=== PATIENT | female | born 1965 | race Caucasian/White ===

== ENCOUNTER 2018-10-14 08:17 | Emergency (ER) | payer MEDICAID ==
[~2018-10-14] VITALS: Ht 167.6 cm; Wt 75.3 kg
[2018-10-14 08:25] VITALS: BP 146/59
--- NOTE | 2018-10-14 08:25 | NUR ---
BIB SELF. C/O OF DIZZINESS X TODAY. PT IS NAUSEATED, VOMITING AND DIARRHEA X 1 EARLIER TODAY AAOX4. PATIENT POSITIONED FOR COMFORT; HOB ELEVATED; BEDRAILS UP X1; BED DOWN. ER MD MADE AWARE OF PT STATUS. PMH: HYPERTENSION, HEART MURMUR
[2018-10-14] MEDS ORDERED: ONDANSETRON 4 MG/2 ML VIAL IVP ONE (08:45)
--- NOTE | 2018-10-14 08:45 | NUR ---
Patient being evaluated by physician at bedside.
--- NOTE | 2018-10-14 10:00 | NUR ---
Patient appears to be resting comfortably in bed. Respirations even and unlabored.
[2018-10-14 12:44] VITALS: BP 143/60
== END 2018-10-14 12:44 | disposition home or self-care (01) ==
LOC: MED 08:17
DX: R42 Dizziness and giddiness (principal); I10 Essential (primary) hypertension; G40.909 Epilepsy, unspecified, not intractable, without status epilepticus; Z88.0 Allergy status to penicillin; Z88.1 Allergy status to other antibiotic agents; Z88.2 Allergy status to sulfonamides; Z88.8 Allergy status to other drugs, medicaments and biological substances; Z79.899 Other long term (current) drug therapy
CPT/HCPCS: 81002; 81025; 96374; 99283; J2405

== ENCOUNTER 2018-10-25 10:54 | Emergency (ER) | payer MEDICAID ==
--- NOTE | 2018-10-25 11:30 | NUR ---
WHEN CALLED PT FOR TRIAGE, COULD NOT FIND THE PT, PT LEFT WITHOUT SEEN PER CABLE DRILLER.
== END 2018-10-25 11:30 | disposition left against medical advice (07) ==
LOC: MED 10:54
DX: Z53.21 Procedure and treatment not carried out due to patient leaving prior to being seen by health care provider (principal)

== ENCOUNTER 2018-10-27 06:26 | Emergency (ER) | payer MEDICAID ==
[~2018-10-27] VITALS: Ht 167.6 cm; Wt 72.1 kg
[2018-10-27 06:32] VITALS: BP 145/69
--- NOTE | 2018-10-27 06:50 | NUR ---
PT BIB SELF C/O CONGESTION. PT STATES PRODUCTIVE COUGH OF THIN CLEAR MUCOUS AND SOB X3 WEEKS. PT STATES 0/10 PAIN AT THIS TIME. DENIES N/V/D. --AUDIBLE WHEEZING THROUGH OUT. BREATHING EQUAL AND UNLABORED. PT O2 SAT 95% ROOM AIR. SKIN WARM, DRY AND INTACT. SPEECH CLEAR. PT ACTING APPROPRIATLY. PT IN GOWN, IN BED; BED IN LOWER LOCKED POSITION; BEDRAILS UP X1. ER MD AWARE. WILL CONTINUE TO MONITOR. PMH: HTN, EPILEPSY, VERTIGO
--- NOTE | 2018-10-27 07:07 | NUR ---
Pt report given to BANDAR Conteh. Transfer of care at this time.
[2018-10-27] MEDS ORDERED: CEPHALEXIN 500 MG CAP PO ONE (07:35)
[2018-10-27] MEDS ORDERED: FAMOTIDINE 20 MG TAB PO ONE (07:35)
[2018-10-27] MEDS ORDERED: DEXAMETHASONE 10 MG/ML VIAL IM ONE (07:35)
[2018-10-27] MEDS ORDERED: hydrOXYzine HCL 25 MG TAB PO ONE (07:35)
[2018-10-27] MEDS ORDERED: MECLIZINE 25 MG TAB PO ONE (07:35)
[2018-10-27] MEDS ORDERED: ALBUTEROL SULFATE/IPRATROPIU 3 ML SOL IH ONE (07:35)
--- NOTE | 2018-10-27 07:42 | NUR ---
INFLUENZA A & B SWAB OBTAINED ORDERED.
[2018-10-27 08:19] LABS: BASOPHILS % (AUTO) 0.5 % (0.0-2.0); EOSINOPHILS # (AUTO) 0.1 K/uL (0-0.4); EOSINOPHILS % (AUTO) 0.7 % (0.0-4.0); HEMATOCRIT 44.6 % (36-48); HEMOGLOBIN 15.2 g/dL (12.0-16.0); LYMPHOCYTES # (AUTO) 1.9 K/uL (2.5-16.5); LYMPHOCYTES % (AUTO) 21.8 % (20.5-51.1); MEAN CORPUSCULAR HEMOGLOBIN 31 pg (27-31); MEAN CORPUSCULAR HGB CONC 34 g/dL (33-37); MEAN CORPUSCULAR VOLUME 89.7 fL (80-94); MONOCYTES # (AUTO) 0.5 K/uL (0.8-1.0); NEUTROPHILS # (AUTO) 6.2 K/uL (1.8-7.7); PLATELET COUNT (AUTO) 195 K/uL (140-450); RED BLOOD CELL COUNT(AUTO) 4.97 MIL/uL (4.20-5.40); RED CELL DISTRIBUTION WIDTH 12.5 % (11.6-13.7); WHITE BLOOD COUNT (AUTO) 8.8 K/uL (4.8-10.8)
--- NOTE | 2018-10-27 08:20 | NUR ---
PT TAKEN TO RADIOLOGY VIA WHEEL CHAIR BY PRATIBHA FREEMAN
[2018-10-27 08:37] LABS: BARBITURATE, URINE NEG. ng/ml (NEG <=200); BENZODIAZEPINE, URINE NEG. ng/mL (NEG <=200); CANNABINOID, URINE POS. ng/mL (NEG <=50); COCAINE, URINE NEG. ng/mL (NEG <=300); OPIATE, URINE POS. ng/mL (NEG <=2000); PHENCYCLIDINE SCREEN,URINE NEG. ng/mL (NEG <=25)
[2018-10-27 08:38] LABS: ALBUMIN 3.8 g/dL (3.4-5.0); ANION GAP 16.4 (8-16); CARBON DIOXIDE 24.7 mmol/L (21-32); CREATININE 0.7 mg/dL (0.6-1.3); POTASSIUM 4.1 mmol/L (3.5-5.1); TOTAL BILIRUBIN 0.3 mg/dL (0.0-1.0)
[2018-10-27 08:55] LABS: PROTHROMBIN TIME 8.9 secs (10.8-13.4)
--- NOTE | 2018-10-27 09:07 | NUR ---
Patient discharged with v/s stable. Written and verbal after care instructions given and explained. Patient alert, oriented and verbalized understanding of instructions. Ambulatory with steady gait. All questions addressed prior to discharge. ID band removed. Patient advised to follow up with PMD. Rx of Albuterol, Prednisone, Promethazine, Keflex given. Patient educated on indication of medication including possible reaction and side effects. Opportunity to ask questions provided and answered.
[2018-10-27 09:09] VITALS: BP 141/82
== END 2018-10-27 09:07 | disposition home or self-care (01) ==
LOC: MED 06:26
DX: J44.9 Chronic obstructive pulmonary disease, unspecified (principal); F12.10 Cannabis abuse, uncomplicated; F11.10 Opioid abuse, uncomplicated; F17.200 Nicotine dependence, unspecified, uncomplicated; I49.9 Cardiac arrhythmia, unspecified; Z86.73 Personal history of transient ischemic attack (TIA), and cerebral infarction without residual deficits; Z88.0 Allergy status to penicillin; Z88.1 Allergy status to other antibiotic agents; Z88.8 Allergy status to other drugs, medicaments and biological substances
CPT/HCPCS: 36415; 71046; 80053; 80305; 83735; 83880; 84484; 85025; 85379; 85610; 85730; 87804; 94640; 96372; 99284; J1100; J7620; J8597; 93005